=== PATIENT | female | born 1955 | race Caucasian/White ===

== ENCOUNTER → 2018-04-24 | Outpatient (CLI) | payer MEDICARE, BC ==
[2016-08-21 09:15] VITALS: BP 138/78
[~2018-04-24] MED LIST: ALPR0.25 PO; ALPR0.5T6 PO; BUPR150T8 PO; CEFU250T PO; DICY20TA30 PO; ESOM20CA PO; GABA-585 PO; INSU100V31 SQ; INSU100V8 SQ; Ipratropium/Albuterol Sulfate NEB; LEVO500T59 PO; LISI1TAB7 PO; ONDA4TAB10 PO; POTA10TA31 PO; SERT50TA8 PO; TRAM50TA PO
--- NOTE | 2018-04-24 16:04 | RAD ---
Esophagram HISTORY: Patient feels like she cannot swallow normally. Constantly needing to clear throat. History of esophageal stricture, with endoscopic dilatation, about 6 years ago. TECHNIQUE: Effervescent, thin and thick barium were used in a variety of standing and nonstanding positions. A total of 18 images are obtained. Fluoroscopy time was 4.7 minutes. FINDINGS: Preliminary PA view of the chest demonstrates no infiltrate, pleural effusion or pneumothorax. Cardiac silhouette appears widened. Spinal stimulator leads are noted over the lower thoracic spine. Surgical hardware at the proximal left humerus. No persistent abnormality was identified in the pharyngeal region. Esophagus demonstrates no fixed mucosal abnormality or stricture. No filling defect. The contrast column moves promptly into the stomach, without abnormal persistence of the colon. Mild tertiary contractions are identified throughout the exam. No evidence of gastroesophageal reflux, despite changing positions and provocative maneuvers. IMPRESSION: 1. Mild tertiary contractions of esophagus. 2. No fixed esophageal mass or stricture. Electronically signed by: Jacek Hannon MD (04/24/2018 4:01 PM) [facility]
== END | disposition home or self-care (01) ==
LOC: RAD 12:41
PROVIDERS: ATTEND Family Medicine
DX: K22.2 Esophageal obstruction (principal); I10 Essential (primary) hypertension; E11.9 Type 2 diabetes mellitus without complications; K21.9 Gastro-esophageal reflux disease without esophagitis; Z90.49 Acquired absence of other specified parts of digestive tract
CPT/HCPCS: 74220

== ENCOUNTER → 2018-10-29 | Outpatient (CLI) | payer MEDICARE, BC ==
[2016-08-21 09:15] VITALS: BP 138/78
--- NOTE | 2018-10-29 16:20 | RAD ---
PQRS Compliance Statement: One or more of the following individualized dose reduction techniques were utilized for this examination: 1. Automated exposure control 2. Adjustment of the mA and/or kV according to patient size 3. Use of iterative reconstruction technique CT abdomen/pelvis without contrast 10/29/2018 3:54 PM INDICATION: Flank pain, hematuria COMPARISON: CT abdomen/pelvis August 21, 2016 TECHNIQUE: Multiple axial CT images of the abdomen and pelvis were obtained without intravenous contrast. Coronal and sagittal reformats are provided. FINDINGS: Lung bases are clear. Heart size is within normal limits. Mitral annular calcifications are identified. There is a small hiatal hernia. Evaluation of the solid abdominal viscera is limited by lack of intravenous contrast. No suspicious hepatic amount is identified. Gallbladder surgically absent. Spleen, bilateral adrenal glands and pancreas are normal in appearance. Abdominal aorta is normal in course and caliber. There are no pathologically enlarged lymph nodes in abdomen and pelvis. There is no free fluid or free intraperitoneal air. The kidneys are relatively symmetric in appearance. There is no suspicious renal mass within the limitations of a noncontrast examination. There is no hydronephrosis. There are no calculi within the kidneys or ureters. There may be a 2 mm nonobstructing calculus in the dependent portion of the urinary bladder (series 2, image 133). Uterus and adnexa appear normal. Colon is predominantly decompressed, limiting evaluation. Normal appendix is visualized. Small large bowel are normal in caliber. But oral contrast was evaluation of the bowel. No evidence for bowel obstruction or inflammation. Spinal epidural leads are identified terminating at the inferior endplate of T9. Mild chronic height loss is identified at L1 secondary to superior endplate Schmorl's node. IMPRESSION: No evidence for obstructive uropathy. There is no hydronephrosis. There is a 2 mm calculus identified within the dependent portion of the urinary bladder, likely recently passed. Electronically signed by: Ewa Hernandez MD (10/29/2018 4:15 PM) [id number]
== END | disposition home or self-care (01) ==
LOC: CT 15:50
PROVIDERS: ATTEND Nurse Practitioner Family
DX: N21.0 Calculus in bladder (principal); K44.9 Diaphragmatic hernia without obstruction or gangrene
CPT/HCPCS: 74176

== ENCOUNTER → 2020-01-30 | Outpatient (CLI) | payer MEDICARE, BC ==
[2016-08-21 09:15] VITALS: BP 138/78
[~2020-01-30] MED LIST changes: +LISI1TAB20 PO; -LISI1TAB7 PO; +POTA10TA12 PO; -POTA10TA31 PO
--- NOTE | 2020-01-30 11:16 | RAD ---
INDICATION: Soft tissue mass COMPARISON: None. FINDINGS: Focused ultrasound was performed in the right side of the back at the region of concern. No drainable fluid collection or mass is seen on focused ultrasound IMPRESSION: * No drainable fluid collection or mass seen on focused ultrasound. Electronically signed by: Jayson Wise MD (01/30/2020 11:13 AM) [id number]
== END | disposition home or self-care (01) ==
LOC: US 09:39
PROVIDERS: ATTEND Family Medicine
DX: M79.89 Other specified soft tissue disorders (principal)
CPT/HCPCS: 76881

== ENCOUNTER → 2020-03-22 | Outpatient (CLI) | payer MEDICARE, BC ==
[2016-08-21 09:15] VITALS: BP 138/78
[2020-03-22 16:19] LABS: BASO % 1 % (0-3); EOS # 0.1 x10^3/uL (0.0-0.7); EOS % 1 % (0-3); HEMATOCRIT 39.5 % (36.0-47.0); HEMOGLOBIN 13.1 g/dL (12.0-15.5); LYMPH # 2.5 x10^3/uL (1.0-4.8); LYMPH % 29 % (24-48); MEAN CORPUSCULAR HEMOGLOBIN 30 pg (25-35); MEAN CORPUSCULAR HGB CONC 33 g/dL (31-37); MEAN CORPUSCULAR VOLUME 91 fL (79-100); MONO # 0.6 x10^3/uL (0.0-1.1); MONO % 7 % (0-9); NEUT # 5.5 x10^3uL (1.8-7.7); NEUT % 63 % (31-73); PLATELET COUNT 232 x10^3/uL (140-400); RED BLOOD COUNT 4.37 x10^6/uL (3.50-5.40); RED CELL DISTRIBUTION WIDTH 13.8 % (11.5-14.5); WHITE BLOOD COUNT 8.8 x10^3/uL (4.0-11.0)
[2020-03-22 16:35] LABS: CALCIUM 9.2 mg/dL (8.5-10.1); CREATININE 1.1 mg/dL (0.6-1.0); GFR 49.7; POTASSIUM 4.2 mmol/L (3.5-5.1)
[2020-03-23 01:07] LABS: HEMOGLOBIN A1C 7.7 % (4.8-5.6)
[2020-03-23 18:11] LABS: FREE T4 1.07 ng/dL (0.76-1.46); THYROID STIM HORMONE (TSH) 2.528 uIU/mL (0.358-3.740)
== END | disposition home or self-care (01) ==
LOC: LAB 15:47
PROVIDERS: ATTEND Family Medicine
DX: I11.0 Hypertensive heart disease with heart failure (principal); I50.33 Acute on chronic diastolic (congestive) heart failure; E11.41 Type 2 diabetes mellitus with diabetic mononeuropathy; E78.2 Mixed hyperlipidemia; R07.89 Other chest pain; E78.01 Familial hypercholesterolemia
CPT/HCPCS: 36415; 80048; 80061; 83036; 83880; 84439; 84443; 84484; 85025